=== PATIENT | female | born 1985 | race Caucasian/White ===

== ENCOUNTER 2020-03-31 01:11 | Outpatient (CLI) | payer OTHER, SELFPAY ==
[2020-03-31 20:15] LABS: SARS-CoV-2 RNA PCR Negative
== END 2020-03-31 01:12 | disposition home or self-care (01) ==
LOC: ANHCOVIDDT 01:11
PROVIDERS: Visit Provider Surgery Plastic and Reconstructive Surgery
DX: Z01.818 Encounter for other preprocedural examination (principal); Z20.828 Contact with and (suspected) exposure to other viral communicable diseases
CPT/HCPCS: 87635; C9803; U0003

== ENCOUNTER 2020-04-03 01:33 | Day surgery (SDC) | payer OTHER, SELFPAY ==
[2020-03-23 14:53] VITALS: BMI 22.2
--- NOTE | 2020-04-02 09:33 | WPDANESEPPF ---
Anes - Initial Pre Proc Eval Procedure: Operation Date: 04/03/20 10:30 Proposed Procedures p Bilateral Breast Augmentation - David Chilel MD Date/Time: 04/02/20 09:33 Surgeon: David Chilel MD Pre Op Diagnosis: Micromastia Patient Data Age: 35 Gender: F Height: 1.6 m Weight: 57 kg Allergies Allergy/AdvReac Type Severity Reaction Status Date / Time No Known Allergies Allergy Verified 04/03/20 08:38 Home Medications Medication Instructions Recorded Confirmed Type escitalopram oxalate 10 mg tablet 10 mg PO DAILY tablet 02/29/20 04/03/20 History ropinirole 1 mg tablet 1 mg PO DAILY tablet 02/29/20 04/03/20 History carisoprodol 350 mg tablet 350 mg PO TID PRN #21 tablet 03/20/20 04/03/20 Rx docusate sodium 100 mg capsule 100 mg PO DAILY #14 cap 03/20/20 04/03/20 Rx oxycodone-acetaminophen 5 mg-325 1 tablet PO Q6H PRN #15 tablet 03/20/20 04/03/20 Rx mg tablet Patient hx anesthesia problems: none Family hx anesthesia problems: none PMFSH Past Medical History Medical History (Updated 04/02/20 @ 09:33 by Dm Smiley DO) Anxiety and depression Restless leg syndrome Surgical History Surgical History History of laparoscopic cholecystectomy 01/27/2020 History of spinal fusion 12/29/2006 Family History Family History Grandparent Diabetes mellitus History of cancer Grandparent History of cancer Social History Social History Smoking status: Never smoker Alcohol intake: never Alcohol use details: rarely Substance use: never Substance use type: does not use Living arrangements: with family Spiritual care concerns: No Anes - Eval Final PreProcedure Day of Procedure 04/02/20 09:33 Patient weight: normal Heart: regular rate and rhythm Lungs: clear to auscultation and normal air movement Airway: Mallampati scale class II Neurological: alert and oriented Last oral intake: >/= 8 hours ASA classification: II Emergent: no Anesthetic plan: proceed Anesthesia type and monitoring: general LMA and standard monitoring Informed Consent: The patient's anesthetic plan and its attendant risks and benefits were discussed with the patient/family/POA. Questions were solicited and answers provided to the satisfaction of the patient/family/POA.
[2020-04-03] VITALS (8 sets, daily range): BP systolic 110–168; BP diastolic 54–86; PULSE 66–117; RESP 14–20; TEMP 36.2–36.4; O2SAT 99–100; BMI 22.4
[2020-04-03] MEDS: LACTATED RINGERS 1,000 ML 30 ML IV CONT ×2 (08:54→12:45)
--- NOTE | 2020-04-03 10:31 | WPDHPUPDATE1 ---
History and Physical Update Update Date/Time: 04/03/20 10:31 History and Physical has been reviewed, including an updated exam of the patient. There are NO changes in the patient's condition. Risks, benefits, and alternatives have been discussed and questions answered. Patient agrees to proceed with procedure.
[2020-04-03] MEDS: SCOPOLAMINE 1.5 MG PATCH TRANSDERM (10:55)
--- NOTE | 2020-04-03 10:57 | PM.PROC ---
Procedure Note - Detailed Date of procedure: 04/03/20 Pre-op diagnosis: Micromastia Post-op diagnosis: same Procedure performed: Bilateral augmentation mammaplasty Description of procedure: She is here today for bilateral breast augmentation. Previously and again today the risks, benefits, alternatives were discussed in extensive detail. I wanted her to be very realistic about the risks involved as well as expectations. We discussed aftercare and what to monitor for. Made sure answered all of her questions to her satisfaction today and consent was obtained. Marked in the preoperative holding area with their verification. The patient was taken to the operating room placed supine on the operating table. Anesthesia was provided by anesthesiology. A surgical time-out was taken. We cleansed the skin and 1% lidocaine and 0.25% Marcaine with epinephrine was used anesthetize as a field block. She was prepped and draped in a standard sterile fashion. Tegaderm nipple Whitman were placed. A 15 blade used to make an incision along the inframammary fold. Dissection was continued at 45 degree angle until the chest wall as identified. I incised the pectoralis major along its inferior border and completely released the inferior border leaving the medial border intact. I created a subpectoral pocket in the appropriate dimensions based on our preoperative planning for the implant. I then copiously irrigated with saline solution and verified a strict hemostasis. Next the use a triple antibiotic and Betadine containing solution to irrigate the pocket. I washed my gloves with the triple antibiotic and Betadine solution. We washed the implant immediately upon opening it with this solution and only opened it when we needed it. I used implant funnel and no-touch technique. The implant was introduced into the pocket using the funnel. Having verified positioning of the implant this was closed using 2-0 Vicryl followed by 3-0 Monocryl in a running subcuticular 4-0 Monocryl followed by tissue glue. Fluffs, Robin wrap, and surgical bra were placed. Patient was awoke and taken to PACU without difficulty. All instrument sponge counts were correct at the end of the case. Anesthesia: GLMA Surgeon: David Chilel MD Estimated blood loss (mL): 20 Drains: No Packing: No Pathology: none sent Complications: No immediate complications Condition: stable Disposition: PACU Findings: Bilateral Natmary Inspira SoftTouch 375cc implants Dual plane 1 Right: REF M-375 SN [id number] Left: REF [facility]-375 SN [id number]
[2020-04-03] MEDS: ceFAZolin 2 GM/D5W 50 ML 2 GM/50 ML BAG IVPB (11:22)
[2020-04-03] MEDS: LIDO 1%/EPINEPHRINE 1:100,000 20 ML VIAL INFILTRATE (11:40)
[2020-04-03] MEDS: LIDOCAINE HCL 1% LOCAL INJ 10 ML VIAL INFILTRATE (11:52)
--- NOTE | 2020-04-03 12:08 | SUR.OPER ---
RIGHT BREAST [facility] 375CC [id number], EXP 2024-09-08
--- NOTE | 2020-04-03 12:10 | SUR.OPER ---
RIGHT BREAST IMPLANT OPENED AND IMMEDIATE SOAK IN ANTIBIOTIC IRRIGATION PER DR GREER [id number]
--- NOTE | 2020-04-03 12:14 | SUR.OPER ---
1213 LEFT BREAST IMPLANT 22M 375 LOT [id number], EXP 2024-12-24. IMMEDIATE SOAK IN ANTIBIOTIC SOLUTION.
--- NOTE | 2020-04-03 13:12 | SUR.PHASEI ---
Rash to chest and neck. Patient says this is common for her, that it will go away. Denies any itching. Notified Dr Smiley. Will observe.
[2020-04-03] MEDS: oxyCODONE HCL (*CRX) 5 MG TAB IR PO (14:20)
== END 2020-04-03 15:00 | disposition home or self-care (01) ==
PROVIDERS: Visit Provider Surgery Plastic and Reconstructive Surgery
PROC: (CPT 19325; principal; 2020-04-03 10:30)
DX: Z41.1 Encounter for cosmetic surgery (principal); N64.82 Hypoplasia of breast; F41.9 Anxiety disorder, unspecified; G25.81 Restless legs syndrome; Z98.1 Arthrodesis status; Z79.899 Other long term (current) drug therapy
CPT/HCPCS: 19325; 87635; A9270; C9803; J0690; J1100; J1580; J2250; J2405; J2704; J3010; J7030; J7120; U0003